=== PATIENT | female | born 1985 | race Caucasian/White ===

== ENCOUNTER → 2018-06-25 | Outpatient (CLI) | payer OTHER ==
[~2018-06-25] MED LIST: IRON325; MULTIVITAMINS1 EAC7 PO
== END ==
LOC: M.ULTRA 09:30
DX: K80.20 Calculus of gallbladder without cholecystitis without obstruction (principal); R10.13 Epigastric pain

== ENCOUNTER 2020-09-08 07:02 | Emergency (ER) | payer OTHER ==
[~2020-09-08] VITALS: Ht 154.9 cm; Wt 66.2 kg
[2020-09-08 07:46] LABS: ABSOLUTE EOSINOPHILS 0.1 thou/uL (0.0-0.7); ABSOLUTE LYMPHOCYTES 1.4 thou/uL (0.8-5.3); ABSOLUTE MONOCYTES 0.3 thou/uL (0.0-1.2); ABSOLUTE NEUTROPHILS 1.6 thou/uL (1.6-8.1); BASOPHILS 0.4 %; HEMATOCRIT 36.5 % (37.0-47.0); HEMOGLOBIN 12.3 gm/dL (12.0-15.0); LYMPHOCYTES 40.4 %; MCHC 33.8 g/dL (28.0-37.0); MCV 94.8 fL (80.0-100.0); MONOCYTES 9.7 %; MPV 7.6 fl. (7.2-11.1); NUCLEATED RBCS 0 /100WBC; PLATELET COUNT* 278 thou/uL (150-400); POLYS 46.5 %; RBC 3.85 mil/uL (4.20-5.00); RDW-CV 13.7 % (10.5-14.5); WBC 3.5 thou/uL (4.0-11.0)
[2020-09-08 07:50] LABS: CALCIUM 8.8 mg/dL (8.5-10.1); CREATININE 0.7 mg/dL (0.6-1.3); POTASSIUM 4.1 mmol/L (3.5-5.1)
[2020-09-08 07:55] LABS: ALBUMIN 3.7 g/dL (3.4-5.0); TOTAL BILIRUBIN 0.9 mg/dL (<0.1-1.0); TOTAL PROTEIN 7.5 g/dL (6.4-8.2)
[2020-09-08] MEDS ORDERED: CARAFATE1 GM PO (09:13)
[2020-09-08] MEDS ORDERED: PROTONIX40 M4 PO (09:13)
[2020-09-08] MEDS ORDERED: ZOFRAN ODT4 MG DISSOLVE (09:13)
[2020-09-08 09:53] VITALS: BP 148/61
--- NOTE | 2020-09-08 14:31 | EKG ---
[place] [address] ELECTROCARDIOGRAM REPORT Name: CRYSTAL PRYOR Room: [facility]#: [id number] Admission: 09/08/20 Attend Phys: Discharge: 09/08/20 Date of : 85 Date of Service: 09/08/20 0743 Report #: [id number] THIS REPORT FOR: //name// 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 [employer]: JANETTE : 1985 Requested By: Prashanth Shi Order Number: [id number] MD: Ravi Tse Measurements Intervals [place] Rate: 78 P: 71 CO: 164 QRS: 62 QRSD: 89 T: 40 QT: 360 QTc: 411 Interpretive Statements Sinus rhythm Baseline wander in lead(s) II,III,aVF,V3 No previous ECG available for comparison Electronically Signed On 09-08-2020 14:31:31 [employer] by Ravi Tse [email or web address] <ELECTRONICALLY SIGNED> By: Ravi Tse MD, [facility] 09/08/20 1431 0743 0743 Ravi Tse MD, [facility] /EPI
== END 2020-09-08 09:53 | disposition home or self-care (01) ==
LOC: M.ERS 07:02
PROVIDERS: Emergency Medicine Emergency Medical Services
DX: R10.13 Epigastric pain (principal); R11.0 Nausea; Z90.49 Acquired absence of other specified parts of digestive tract